=== PATIENT | female | born 1980 | race Caucasian/White ===

== ENCOUNTER 2021-07-18 16:36 | Emergency (ER) | payer OTHER, SELFPAY ==
--- NOTE | 2021-07-18 16:41 | ED.URI ---
HPI - URI/Sore Throat General Chief Complaint: Upper Respiratory Infection Stated Complaint: Throat pain Time Seen by Provider: 07/18/21 16:41 Source: patient and RN notes reviewed History of Present Illness HPI Narrative: Patient is a 41-year-old female presents the urgent care with complaints of a sore throat since yesterday. Patient states that she has not taken anything [id number] for her symptoms. Denies of fever, chills, nausea, vomiting. Denies any ill contacts. No other acute complaints. No acute distress noted. Patient aware of the plan of care. Some parts of this dictation were generated by voice recognition software and may contain typographical and/or grammatical inaccuracies. Related Data Home Medications Medication Instructions Recorded Confirmed Singulair 10 mg BYMOUTH DAILY 07/18/21 07/18/21 Strattera 18 mg PO DAILY 07/18/21 07/18/21 albuterol sulfate 1 puff INHALATION PRN 07/18/21 07/18/21 cholecalciferol (vitamin D3) 50,000 unit PO WEEKLY 07/18/21 07/18/21 lisdexamfetamine [Vyvanse] 10 mg PO DAILY 07/18/21 07/18/21 Allergies Allergy/AdvReac Type Severity Reaction Status Date / Time ketorolac Allergy Intermediate Numbness Verified 07/18/21 16:59 Penicillins Allergy Intermediate Hives and Verified 07/18/21 16:59 vomiting Sulfa (Sulfonamide Allergy Unknown hives and Verified 07/18/21 16:59 Antibiotics) vomiting fluticasone [From Flonase] AdvReac Nose Bleed Verified 07/18/21 16:59 BC pills AdvReac Intermediate uterine Uncoded 07/18/21 16:59 bleeding Review of Systems Review of Systems: CONSTITUTIONAL: Denies fever, chills, or sweats. EYES: Denies visual changes, redness, or discharge. ENT: Denies rhinorrhea, congestion, otalgia. Reports of sore throat CARDIOVASCULAR: Denies chest pain, palpitations, or edema. RESPIRATORY: Denies cough or dyspnea. GASTROINTESTINAL: Denies abdominal pain, nausea, vomiting, or diarrhea. GENITOURINARY: Denies dysuria or hematuria. SKIN: Denies rash or itching. MUSCULOSKELETAL: Denies back pain, joint pain, or myalgia. NEUROLOGIC: Denies headache, numbness, or weakness. All other systems reviewed are negative, except as documented in HPI. PMFSH Comments At the time of my signature, I reviewed and agree with the nursing past medical, surgical, social, and family history. There is no relevant family history pertinent to the patient complaint. Exam Narrative: GENERAL: This is a well-nourished, well-developed patient, in no apparent distress. HEAD: normocephalic, atraumatic. EYES: PERRL. Sclera clear/white. Vision is grossly intact. EARS: External ears normal, auditory canals clear and without drainage, TMs normal without perforation. Hearing grossly intact. NOSE: External nose normal with no obvious nasal discharge, nares without redness, no rhinorrhea. THROAT: Mucous membranes moist, posterior pharynx clear. Exudate noted to the left. Mild postnasal drainage. NECK: Neck supple, non-tender without lymphadenopathy CARDIOVASCULAR: Regular rate and rhythm without murmurs, gallops, or rubs. RESPIRATORY: Clear to auscultation. Breath sounds equal bilaterally. No wheezes, rales, or rhonchi. SKIN: warm, intact with no suspicious lesions or rash, good texture and turgor. NEURO: awake, alert, and oriented to person, place and time. There were no obvious focal neurologic abnormalities. EXTREMITIES: No clubbing, cyanosis, or edema. Course Course Level of Care: Express Care Visit Vital Signs Vital signs: Vital Signs Temperature 98.5 F 07/18/21 16:50 Pulse Rate 64 07/18/21 16:50 Respiratory Rate 16 07/18/21 16:50 Blood Pressure 103/68 07/18/21 16:50 Pulse Oximetry 100 07/18/21 16:50 Temperature 98.5 F 07/18/21 16:50 Pulse Rate 64 07/18/21 16:50 Respiratory Rate 16 07/18/21 16:50 Blood Pressure 103/68 07/18/21 16:50 Pulse Oximetry 100 07/18/21 16:50 Reviewed MDM - URI/Sore Throat MDM Narrative Medical decision jose rafael
[2021-07-18 16:50] VITALS: BP 103/68; PULSE 64; RESP 16; TEMP 36.9; O2SAT 100
== END 2021-07-18 17:15 | disposition home or self-care (01) ==
PROVIDERS: Emergency Provider Nurse Practitioner Family; PCP Internal Medicine
DX: J02.9 Acute pharyngitis, unspecified (principal); J45.909 Unspecified asthma, uncomplicated; F90.9 Attention-deficit hyperactivity disorder, unspecified type
CPT/HCPCS: 87081; 87880; 99203; G0463

== ENCOUNTER 2023-12-09 07:52 | Emergency (ER) | payer OTHER, SELFPAY ==
[2023-12-09 07:55] VITALS: BP 110/68; PULSE 71; RESP 20; TEMP 36.4; O2SAT 100
[2023-12-09] MEDS: diphenhydrAMINE HCl CAP 25 MG CAPSULE PO (08:21)
--- NOTE | 2023-12-09 08:30 | ED.SKABFB ---
HPI - Skin/Abscess/Foreign Bdy General Chief complaint: Skin/Abscess/Foreign Body Stated complaint: RASH Time Seen by Provider: 12/09/23 08:04 History of Present Illness HPI narrative: Patient is a 43-year-old female who presents ER with rash. It has developed over last day. Red itchy welts of the arms and 1 her waist. She has some around her ankle as well. Denies being outside. Does not think she is exposed to bedbugs. She is not sleeping in a new bed. No new sheets. No one else in the house has similar lesions. She has been using hydrocortisone. Related Data Home Medications Medication Instructions Recorded Confirmed Singulair 10 mg BYMOUTH DAILY 07/18/21 07/18/21 Strattera 18 mg PO DAILY 07/18/21 07/18/21 albuterol sulfate 90 mcg/actuation 1 puff inhalation PRN 07/18/21 07/18/21 aerosol inhaler cholecalciferol (vitamin D3) 1,250 50,000 unit PO WEEKLY 07/18/21 07/18/21 mcg (50,000 unit) capsule lisdexamfetamine 10 mg capsule 10 mg PO DAILY 07/18/21 07/18/21 (Vyvanse) Allergies Allergy/AdvReac Type Severity Reaction Status Date / Time ketorolac Allergy Intermediate Numbness Verified 12/09/23 08:03 Penicillins Allergy Intermediate Hives and Verified 12/09/23 08:03 vomiting Sulfa (Sulfonamide Allergy Unknown hives and Verified 12/09/23 08:03 Antibiotics) vomiting fluticasone [From Flonase] AdvReac Nose Bleed Verified 12/09/23 08:03 BC pills AdvReac Intermediate uterine Uncoded 12/09/23 08:03 bleeding Review of Systems Constitutional: Constitutional: Reports no additional constitutional complaints Integumentary/Breasts: Skin/Breast: Reports pruritus, Reports erythema and Denies rash PMFSH Past Medical History Medical History (Updated 12/09/23 @ 08:37 by Rodger Tomlin MD) Healthy female adult Exam Narrative: GENERAL: Well-appearing, well-nourished, and in no acute distress. HEAD: Normocephalic, atraumatic. ENT: Mucous membranes moist. EXTREMITIES: Normal range of motion. No edema. SKIN: Warm, dry, no rash. areas consistent with bug bites moving up the arms bilaterally, also around the waist and ankles. No excoriations. No cellulitis. NEURO: Alert and oriented x3. PSYCH: Normal mood and affect. Course Course Emergency Course: Discussed the treatment is couple hydrocortisone like she is using in taking antihistamines. Unsure if this is bedbugs but would recommend washing her sheets and clothes in hot water. Vital Signs Vital signs: Vital Signs Temperature 97.5 F L 12/09/23 07:55 Pulse Rate 71 12/09/23 07:55 Respiratory Rate 20 12/09/23 07:55 Blood Pressure 110/68 12/09/23 07:55 Pulse Oximetry 100 12/09/23 07:55 Oxygen Delivery Room Air 12/09/23 07:55 Temperature 97.5 F L 12/09/23 07:55 Pulse Rate 71 12/09/23 07:55 Respiratory Rate 20 12/09/23 07:55 Blood Pressure 110/68 12/09/23 07:55 Pulse Oximetry 100 12/09/23 07:55 Oxygen Delivery Room Air 12/09/23 07:55 Discharge Plan Discharge Clinical Impression: Bug bite Patient Disposition: Home, Self-Care Condition: Stable Instructions: Insect Bite or Sting (ED) Additional Instructions: Continue did use her topical hydrocortisone. You may take Benadryl or Zyrtec to help with itching. It is recommended that you wash your sheets and bedding in hot water and dry on high heat in case there are bedbugs. Prescriptions: No Action albuterol sulfate 90 mcg/actuation HFA aerosol inhaler 1 puff INHALATION PRN cholecalciferol (vitamin D3) 1,250 mcg (50,000 unit) capsule 50,000 unit PO WEEKLY Vyvanse 10 mg capsule 10 mg PO DAILY Singulair 10 mg BYMOUTH DAILY Strattera 18 mg PO DAILY Follow-up/Referrals: UNKNOWN,DOCTOR [Primary Care Provider] - 1 Week
[2023-12-09 08:45] VITALS: BP 115/72; PULSE 70; RESP 14; TEMP 36.5; O2SAT 100
== END 2023-12-09 08:48 | disposition home or self-care (01) ==
PROVIDERS: Emergency Provider Emergency Medicine
DX: S40.862A Insect bite (nonvenomous) of left upper arm, initial encounter (principal); S40.861A Insect bite (nonvenomous) of right upper arm, initial encounter; S30.861A Insect bite (nonvenomous) of abdominal wall, initial encounter; S91.052A Open bite, left ankle, initial encounter; S91.051A Open bite, right ankle, initial encounter; Z79.899 Other long term (current) drug therapy; W57.XXXA Bitten or stung by nonvenomous insect and other nonvenomous arthropods, initial encounter
CPT/HCPCS: 99282; A9270

== ENCOUNTER 2024-03-12 11:23 | Outpatient (CLI) | payer OTHER, SELFPAY ==
[2024-03-12 12:42] LABS: Thyroid Stimulating Hormone 0.969 uIU/mL (0.465-4.680)
[2024-03-15 02:28] LABS: FSH 4.8 mIU/mL
== END 2024-03-12 11:24 | disposition home or self-care (01) ==
LOC: ANHLAB 11:29
PROVIDERS: Visit Provider Obstetrics & Gynecology
DX: N95.1 Menopausal and female climacteric states (principal)
CPT/HCPCS: 36415; 82670; 83001; 84443

== ENCOUNTER 2024-08-04 08:23 | Outpatient (CLI) | payer OTHER, SELFPAY ==
--- OUTSIDE RECORDS SUMMARY | 2024-08-04 08:53 | XMS_ITS | Clinical Summary ---
Author Organization [facility] Address [address] [place] [address] Care Team Providers Care Labor Gang Supervisor Name Role Phone Rodger Castillo MD Primary Care Provider [phone] Allergies Active Allergy Reactions Criticality Noted Date Comments Ketorolac Other (See Comments) Low 02/16/2020 Lose feeling from waist down Other reaction(s): Other (See comments) Numbness Nasin Nasal Fulda Other (See Comments) 02/16/20 20 Nose bleed Penicillins Rash,Nausea and Vomiting Medium 02/16/2020 Other reaction(s): Nausea only Sulfa (Sulfonamide Antibiotics) Rash,Nausea and Vomiting Low 02/16/2020 Sulfur Rash Medium 03/26/2020 Medications cholecalciferol 1,250 mcg (50,000 unit) CapsuleIndicatio ns:Vitamin D deficiency Take 1 Capsule (50,000 Units) by mouth every 7 days. 12 Capsule 3 3 Active cyanocobalamin (VITAMIN B-12) 100 mcg tabletIndication s:Vitamin B12 deficiency (non anemic) Take 1 Tablet (100 mcg) by mouth daily. 90 Tablet 3 3 Active montelukast (SINGULAIR) 10 mg tabletIndication s:Other asthma Take 1 Tablet (10 mg) by mouth daily. 90 Tablet 3 3 Active dicyclomine (BENTYL) 10 mg capsuleIndicatio ns:Chronic diarrhea Take 1 Capsule (10 mg) by mouth 4 times daily as needed for Pain (diarrhea). 90 Capsule 2 3 Active fluticasone propion-salmeter oL (ADVAIR HFA) 115-21 mcg/actuation HFA Aerosol Inhaler Take 2 Puffs by inhalation every 12 hours. 12 Gram 3 4 Active citalopram (CeleXA) 20 mg tablet Take 1 Tablet (20 mg) by mouth daily at bedtime. 90 Tablet 3 4 Active azelastine (ASTELIN) 137 mcg/actuation nasal spray Administer 2 Sprays in each nostril 2 times daily. 30 mL 3 4 Active albuterol sulfate HFA 90 mcg/actuation aerosol inhaler Take 2 Puffs by inhalation every 4 hours as needed for Shortness of Breath. 8.5 Gram 6 4 Active omeprazole (PriLOSEC) 20 mg Capsule, Delayed Release(E.C.)Ind ications:Dysphag ia, unspecified type,Gastroesoph ageal reflux disease, unspecified whether esophagitis present Take 1 capsule by mouth once daily 60 Capsule 4 Active Active Problems Patient Care Coordination No te Formatting of this note migh t be different from the original. Prev 11/22/22 Problem Noted Date Diagnosed Date Adjustment disorder with anxiety 11/22/2022 S/P vaginal hysterectomy 01/06/2022 Other asthma 07/14/2021 Gastroesophageal reflux disease without esophagi tis 02/16/2020 Irritable bowel syndrome with diarrhea 0 Other insomnia 02/16/2020 Myalgia 02/16/2020 Encounters Date Type Department Care Team Description 06/18/2024 External Device Data ST[facility] ABSTRACTION Provider, Abstract from Last 3 Months Immunizations Immunization Administration Dates Next Due (ADACEL/BOOSTRIX)(10 YR UP) TDAP VACCINE, 0.5ML, IM 03/13/2021 (M-M-R II/PRIORIX)(12 MO UP) MEASLES, MUMPS AND RUBELLA VIRUS VACCINE, 0.5 ML IM/SUBCUT 06/17/2019 (PFIZER)(12 YR UP) COVID-19 VACCINE - EMERGENCY USE AUTHORIZATION, MRNA, [id number](PF) 30 MCG/0.3 ML IM SUSP 02/28/2021,02/02/2021 (PREVNAR 20)(6 WKS UP) PNEUM OCOCCAL CONJUGATE VACCINE 20-VALENT (PCV20), POLYSACCHARIDE [id number] CONJUGATE, ADJUVANT 0.5 ML (PF) IM 05/28/2023 INFLUENZA VACCINE QUADRIVALENT 6 MOS UP PF IM Family History * Patient is adopted Relation Name Status Comments Daughter 1 Alive Daughter 2 Alive Father Mother Other Sister 1 Alive Sister 2 Alive Sister 3 Alive Social History Tobacco Use Types Packs/Day Years Used Date Smoking Tobacco: Former Cigarettes 1 4 0 02/15/2001 - 02/15/2005 Passive Smoke Exposure: Past Smokeless Tobacco: Never Tobacco Cessation:Counseling Given: No Alcohol Use Standard Drinks/Week Comments Yes 0 (1 standard drink = 0.6 oz pur e alcohol) occ Feeling Safe Answer Date Recorded Are you in a relationship wi th someone who hurts you emotionally and/or physically? No 06/11/2023 Comments No Sex and Gender Information Value Date Recorded Sex Assigned at Female 03/05/2023 11:37 AM CDT Legal Sex Female 11:38 AM CDT Gender Identity Female 03/05/2023 11:37 AM CDT Sexual Orientation Straight 03/05/2023 11 :37 AM CDT Last Filed Vital Signs Vital Sign Reading Time Taken Comments Blood Pressure 105/68 06/11/2023 11:30 AM RETURN AGENT Pulse 69 06/11/2023 11:30 AM RETURN AGENT Temperature 36.2 C (97.1 F) 06/11/2023 11:19 AM RETURN AGENT Respiratory Rate 146 06/11/2023 11:30 AM RETURN AGENT Oxygen Saturation 100% 06/11/2023 11:30 AM RETURN AGENT Inhaled Oxygen Concentration - - Weight 53.1 kg (117 lb) 05/28/2023 10:09 AM RETURN AGENT Height 149.9 cm (4' 11 ) 05/28/2023 10:09 AM RETURN AGENT Body Mass Index 23.63 05/28/2023 10:09 AM RETURN AGENT Plan of Treatment Health Maintenance Due Date Last Done Comments HEPATITIS B VACCINES (1 of 3 - 19+ 3-dose series) 1998 BREAST CANCER SCREENING 12/12/2023 12/12/19 23, 04/06/2021, 03/26/2020, Additional history exists INFLUENZA VACCINE (#1) 2023 03/13/2021 COVID-19 Vaccine ( season) 2024 02/28/2021, 02/02/2021 FIT-DNA Q 3 years 2024 FIT/FOBT Q 1 year 2024 Preventative Visit- Commercial 05/27/2024 05/28/2023, 12/27/2022, 11/22/2022, Additional history exists CERVICAL CANCER SCREENING 12/27/20252022, 10/24/2021, 06/24/2020 COLORECTAL SCREENING 06/11/2026 06/11/2023, 06/11/19 24 Colorectal Cancer Screening 06/11/2026 Flex Sig/CT Colonography Q 5 years 03/12/2028 03/12/2023 DTAP/TDAP/TD VACCINES (2 - Td or Tdap) 03/13/2031 03/13/2021 PNEUMOCOCCAL VACCINE 0-49 YEARS Completed 05/28/2023 HPV VACCINES Aged Out No longer eligi ble based on patient's age to complete this topic Procedures Procedure Name Priority Date/Time Associated Diagnosis Comments COLONOSCOPY REPORT 06/11/2023 11 :23 AM RETURN AGENT FLEXIBLE SIGMOIDOSCOPY REPORT 03/12/2023 7:31 AM CDT CERV/VAG CYTO AGE BASED SCREEN PAP Routine 12/27/2022 9:51 AM CDT Well woman exam with routine gynecological exam MAMMO 3D TRINIDAD SCREEN BILAT W OR WO CAD Routine 12/11/2022 9:48 AM CDT Visit for screening mammogram from Last 3 Months or Most Recently Relevant to Health Maintenance Results * COLONOSCOPY REPORT (06/11/2023 11:23 AM RETURN AGENT) Narrative Procedure Note Ivania Viramontes MD - 06/11/2023 11:23 AM CST [facility] Endoscopy Patient Name: Namita Ash Procedure Date: 06/11/2023 Date of : 1980 Attending MD: Ivania Viramontes MD, Procedure: Colonoscopy Indications: Screening for colorectal malignant neoplasm Providers: Ivania Viramontes MD Referring MD: Rodger Castillo MD Medicines: Monitored Anesthesia Care Complications: No immediate complications. Procedure: Informed consent was obtained for the procedure, including moderate sedation after risks were discussed. Based on the pre-procedure assessment, including review of the patient's medical history, medications, allergies, and review of systems, the patient was deemed to be an appropriate candidate for sedation. A timeout was performed. Continuous ECG monitoring, pulse oximetry, blood pressure monitoring, and direct observation were performed. The Colonoscope was introduced through the anus and advanced to the cecum, identified by appendiceal orifice and ileocecal valve. The colonoscopy was performed without difficulty. The patient tolerated the procedure well. The quality of the bowel preparation was poor. Estimated Blood Loss: Estimated blood loss: none. Findings: A 9 mm polyp was found in the transverse colon. The polyp was semi-pedunculated. The polyp was removed with a cold snare. Resection and retrieval were complete. A moderate amount of stool was found in the entire colon, precluding visualization. Lavage and suctioning attempted, some areas still without full clearance. Non-bleeding internal hemorrhoids were found during retroflexion. The hemorrhoids were mild. Impression: - Preparation of the colon was poor. - One 9 mm polyp in the transverse colon, removed with a cold snare. Resected and retrieved. - Stool in the entire examined colon. - Non-bleeding internal hemorrhoids. Recommendation: - Await pathology results. - Repeat colonoscopy in 3 years for surveillance, especially with poor prep. Next time, you need to be sure you check your stools and make sure they are clear or like urine before coming in for repeat colonoscopy. You will need to do two-day prep again and for the week before your next colonoscopy, take miralax twice per day. If you do not feel comfortable looking at your stool to be sure it is clear enough, you need to find a friend or family member that is willing to help you with this next time so that we can get a better look of your entire colon. - NO NSAID MEDICATIONS FOR 7 DAYS. Ivania Viramontes MD 06/11/2023 11:23:26 AM This report has been signed electronically. Number of Addenda: [address]; [place] [address] Ivania Viramontes MD GI PROCEDURE ORDERABLES Final Result * FLEXIBLE SIGMOIDOSCOPY REPORT (03/12/2023 7:31 AM CDT) Narrative Procedure Note Ivania Viramontes MD - 03/12/2023 7:30 AM CDT [facility] Endoscopy Patient Name: Namita Ash Procedure Date: 03/12/2023 Date of : 1980 Attending MD: Ivania Viramontes MD, Procedure: Flexible Sigmoidoscopy, unable to complete colonoscopy due to prep Indications: Diarrhea, chronic anemia (history of GEMINI and menorrhagia with hysterectomy last year, anemia improving). Adopted. Unsure of family history. Providers: Ivania Viramontes MD Referring MD: Rodger Castillo MD Medicines: Monitored Anesthesia Care Complications: No immediate complications. Procedure: The was introduced through the anus and advanced to the left transverse colon. The flexible sigmoidoscopy was accomplished without difficulty. The patient tolerated the procedure well. The quality of the bowel preparation was poor. Estimated Blood Loss: Estimated blood loss: none. Findings: A 7 mm polyp was found in the sigmoid colon. The polyp was pedunculated. The polyp was removed with a cold snare. Resection and retrieval were complete. A large amount of solid stool was found in the transverse colon, precluding visualization. Non-bleeding internal hemorrhoids were found during retroflexion and during digital exam. The hemorrhoids were small. The exam was otherwise without abnormality. Impression: - Preparation of the colon was poor. - One 7 mm polyp in the sigmoid colon, removed with a cold snare. Resected and retrieved. - Stool in the transverse colon. - Non-bleeding internal hemorrhoids. - The examination was otherwise normal. Recommendation: - Await pathology results. - Repeat colonoscopy sometime in next 3-6 months at your convenience. If you did entire prep correctly this time, you will need to do a prolonged prep next time to adequately clean out. - Please have celiac antibody lab tests drawn at [facility] or a [facility] near your house when convenient for you. - I have requested a clinic follow up visit for you. Ivania Viramontes MD 03/12/2023 7:30:42 AM This report has been signed electronically. Number of Addenda: [address]; [place] [address] Ivania Viramontes MD GI PROCEDURE ORDERABLES Final Result * CERV/VAG CYTO AGE BASED SCREEN PAP (12/27/2022 9:51 AM CDT) COMMENT (PAP): [facility] [place] Comment: This order for age-based cervical cancer and STI screening follows ACOG guidelines(PB 168, 140, OTQ855). See individual assays for performing site location. CLINICAL INFORMATION [facility] [place] Comment:None given LAST MENSTRUAL PERIOD [facility] [place] Comment:NONE GIVEN PREV PAP: [facility] [place] Comment:NONE GIVEN PREV BX: [facility] [place] Comment:NONE GIVEN SOURCE [facility] [place] Comment:Vagina ADEQUACY: [facility] [place] Comment:SATISFACTORY FOR KIKO LUATION PAP INTERP [facility] [place] Comment: Cytology Results: Negative for intraepithelial lesion or malignancy. COMMENT (PAP TEST) [facility] [place] Comment: This Pap test has been evaluated with computer assisted technology. CARDIOLOGY MANAGER: [facility] [place] Comment: ABC, CT(ASCP) CT screening location: [place] [place] [address] EXPLANATORY NOTE [facility] [place] Comment: EXPLANATORY NOTE: The Pap is a screening test for cervical cancer. It is not a diagnostic test and is subject to false negative and false positive results. It is most reliable when a satisfactory sample, regularly obtained, is submitted with relevant clinical findings and history, and when the Pap result is evaluated along with historic and current clinical information. HPV E6/E7 Not Detected Not Detected [facility] [place] Comment: Methodology: Night Time Babysitter-Mediated Amplification This assay detects E6/E7 viral messenger RNA (mRNA) from 14 high-risk HPV types (16,18,31,33,35,39,45,51,52,56,58,59,66,68). Cervical sources are required for HPV testing. If a vaginal source from a patient who has had a total hysterectomy with removal of cervix was submitted, please contact the testing laboratory for alternative testing options. For additional information, please refer to http://education.[employer]/faq/RSE810w2 (This link if provided for information/ educational purposes only.) [facility] [address] [place] [address] Josefina MCKENZIE Genital SPECIMEN FROM VAGINA / Unknown 12/27/2022 9:51 AM CDT 12/27/2022 10:13 PM CDT us Zaria Mack NP PATHOLOGY/CYTOLOGY ORDERABLE S Final Result [facility] [phone] [facility] [address] [place] [address] * MAMMO SCRN BILAT 3D TRINIDAD W OR WO CAD (12/11/2022 9:48 AM CDT) Anatomical Region Laterality Modality Breast Bilateral Mammography 12/11/2022 9:48 AM CDT Impressions 12/11/2022 12:58 PM CDT IMPRESSION: No mammographic evidence of malignancy. OVERALL FINAL ASSESSMENT: BI-RADS CATEGORY 1: Negative RECOMMENDATIONS: Annual screening. The above findings should be correlated with physical examination. A relatively nonspecific study should not preclude additional evaluation if suspicious findings are present clinically. An [employer] certified facility. DICTATION LOCATION: [facility] Narrative 12/11/2022 12:58 PM CDT MAMMOGRAMS SCREENING DIGITAL BILATERAL WITH CAD AND 3D TOMOSYNTHESIS DATE: 12/11/2022 9:48 AM PRIOR: April 06, 2021. HISTORY: Screening. TECHNIQUE: Bilateral digital craniocaudad (CC) and mediolateral oblique (MLO) and XCCL views. 3D Tomosynthesis. CAD. DENSITY: The breasts are heterogeneously dense, which may obscure small masses. FINDINGS: No suspicious finding of either breast. Procedure Note Uriel Busby MD - 12/11/2022 MAMMOGRAMS SCREENING DIGITAL BILATERAL WITH CAD AND 3D TOMOSYNTHESIS DATE: 12/11/2022 9:48 AM PRIOR: April 06, 2021. HISTORY: Screening. TECHNIQUE: Bilateral digital craniocaudad (CC) and mediolateral oblique (MLO) and XCCL views. 3D Tomosynthesis. CAD. DENSITY: The breasts are heterogeneously dense, which may obscure small masses. FINDINGS: No suspicious finding of either breast. IMPRESSION: No mammographic evidence of malignancy. OVERALL FINAL ASSESSMENT: BI-RADS CATEGORY 1: Negative RECOMMENDATIONS: Annual screening. The above findings should be correlated with physical examination. A relatively nonspecific study should not preclude additional evaluation if suspicious findings are present clinically. An [employer] certified facility. DICTATION LOCATION: [facility] Rodger Castillo MD MAMMO ORDERABLES Final Result from Last 3 Months or Most Recently Relevant to Health Maintenance Insurance [employer] OPEN ACCESS H[employer] Advance Directives For more information, please contact: [phone] * Full Code (Latest Code Status on File) Date Activated Date Inactivated Comments 06/11/2023 10:17 AM 06/11/2023 2:51 PM * Full Code Date Activated Date Inactivated Comments 03/12/2023 6:44 AM 03/12/2023 10:18 AM * Full Code Date Activated Date Inactivated Comments 01/05/2022 9:04 AM 01/06/2022 3:58 PM Care Teams Labor Gang Supervisor Relationship Specialty Start Date End Date Rodger Castillo MD PCP - General Internal Medicine 02/12/20
[2024-08-04 08:57] LABS: Hematocrit 35.4 % (37.0-47.0); Hemoglobin 11.4 g/dL (12.0-15.0)
== END 2024-08-04 08:24 | disposition home or self-care (01) ==
LOC: ANHSURGERY 08:32
PROVIDERS: Anesthesiology; Visit Provider Obstetrics & Gynecology
DX: Z01.812 Encounter for preprocedural laboratory examination (principal); D64.9 Anemia, unspecified; R10.2 Pelvic and perineal pain
CPT/HCPCS: 36415; 85014; 85018; 86850; 86900; 86901

== ENCOUNTER 2024-08-07 00:09 | Day surgery (SDC) | payer OTHER, SELFPAY ==
[2024-07-30 14:34] VITALS: BMI 24.9
--- NOTE | 2024-07-30 15:04 | PC.NURSE ---
Report to the Outpatient Waiting Room, entrance under the green pavilion located off [facility], at time __1:15PM on date ___08/07/24____. Planned Procedure Time: __3:15PM .? Time changes happen often and if your time is changed the preop area will call you the afternoon before. - You and your visitor will be asked to self-screen and do not enter if you have any COVID symptoms. Please call surgeon if you need to reschedule. - A mask is optional within the hospital at this time. Patients may have clear liquids (water, carbonated beverages, clear teas, apple juice) until 3 hours prior to surgery (12:15PM) with a maximum of 20 ounces. - No food from midnight until time of surgery and no smoking, or chewing tobacco (or any form of nicotine). No chewing gum, candy or mints. Take only the following medications with a SIP of water on the morning of surgery: ___ADVAIR IN HALER. MAY USE ALBUTEROL INHALER NEEDED. DO NOT STOP ANY OF YOUR OTHER PRESCRIPTION MEDICATIONS PRIOR TO SURGERY EXCEPT THE FOLLOWING Hold all vitamins and supplements for 3 days per anesthesiologist. Date to take last dose 08/03/24. Please no make-up, nail kiswahili, hairspray, perfume, deodorant, or body powder the day of surgery.? No jewelry (including any body piercings) or valuables the day of surgery, leave them at home.? Please take a shower or bath the night before, or the morning of, surgery with an antibacterial soap.? Wear comfortable, loose fitting clothing.? - Jewelry must be removed prior to entering the operating room.? Rings and piercings that are not removed may be cut off. - The hospital will not accept responsibility for valuables.? - Please leave all valuables, including medications, at home the day of surgery. If you are going home after surgery, a licensed wagon driver must drive you home.? - NO public transportation without another adult if you receive anesthesia. - We recommend that an adult stay with you for 24 hours following discharge. - We also recommend that you do not drive, make important decision, drink alcoholic beverages, or take any drugs that were not prescribed by your health care provider for at least 24 hours after your discharge time. Follow any additional instructions given to you from your surgeon. Telephone instructions given to ___PATIENT and asked if any additional questions and then verbalized understanding. Patient advised to call surgeon office or pre surgery nurse liaison [phone] if any additional questions.
--- NOTE | 2024-08-04 12:33 | PM.IMHP ---
H&P: HPI History of Present Illness Date/Time: 08/04/24 12:33 Chief Complaint: Pelvic pain Narrative: 43-year-old female status post hysterectomy admitted for laparoscopy secondary to pelvic pain. She describes her pain as episodes of severe pain. 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 Ultrasound was somewhat unhelpful 1 ovary could be seen on the reported not both. In light of her continued severe pelvic pain she will undergo laparoscopy. Risks and benefits including but not exclusive of , aspiration pneumonia, bleeding, transfusion, perforation injury to bowel, bladder, ureters, or other internal organs with need for open laparotomy reviewed. She received the ACOG handout entitled laparoscopy. She had all questions answered. She asked to proceed. Review of Systems Constitutional: Constitutional: Reports no additional constitutional complaints Integumentary/Breasts: Skin/Breast: Reports pruritus, Reports erythema and Denies rash PMFSH Past Medical History Medical History Healthy female adult Social History Social History Smoking packs per day: 1 Smoking cigarettes per day: 20.0 Years smoked: 10 Smoking pack-years: 10.00 Smoking status: Former smoker Tobacco type: cigarettes Smoking end date: 11/25/03 Alcohol intake: former Alcohol use details: HEAVY DRINKER/ALCOHOLIC Substance use: former Substance use type: crack/cocaine Last use: 2002 Living arrangements: with family Additional living arrangements comments: ROOMMATE Spiritual care concerns: No Meds Home Medications and Allergies Home Medications ?Medication ?Instructions ?Recorded ?Confirmed ?Type albuterol sulfate 90 mcg/actuation 1 puff inhalation PRN PRN 07/18/21 07/30/24 History aerosol inhaler shortness of breath or wheezing cholecalciferol (vitamin D3) 1,250 50,000 unit PO WEEKLY 07/18/21 07/30/24 History mcg (50,000 unit) capsule calcium 500 mg (as 2 tablet PO DAILY 07/30/24 07/30/24 History carbonate)-vitamin D3 3.125 mcg (125 unit) tablet cholecalciferol (vitamin D3) 50 100 mcg PO DAILY 07/30/24 07/30/24 History mcg (2,000 unit) chewable tablet cyanocobalamin (vitamin B-12) 100 100 mcg PO DAILY 07/30/24 07/30/24 History mcg tablet dicyclomine 10 mg capsule 10 mg PO QID PRN abdominal pain 07/30/24 07/30/24 History ferrous sulfate 325 mg (65 mg 325 mg PO DAILY 07/30/24 07/30/24 History iron) tablet (Feosol) fluticasone propionate 115 2 puff inhalation Q12H 07/30/24 07/30/24 History mcg-salmeterol 21 mcg/actuation HFA inhaler (Advair HFA) inulin 2 gram chewable tablet 10 g PO DAILY 07/30/24 07/30/24 History (F[employer]ights) montelukast 10 mg tablet 10 mg PO DAILY 07/30/24 07/30/24 History omeprazole 20 mg capsule,delayed 20 mg PO DAILY 07/30/24 07/30/24 History release Allergies Allergy/AdvReac Type Severity Reaction Status Date / Time ketorolac Allergy Intermediate Numbness Verified 07/30/24 14:26 FROM WAIST DOWN Penicillins AdvReac Intermediate Hives and Verified 07/30/24 14:26 vomiting Sulfa (Sulfonamide AdvReac Unknown hives and Verified 07/30/24 14:26 Antibiotics) vomiting fluticasone (From Flonase) AdvReac Nose Bleed Verified 07/30/24 14:26 BC pills AdvReac Intermediate uterine Uncoded 07/30/24 14:26 bleeding Exam Const: General: cooperative, healthy appearing and comfortable Nutritional Appearance: average body habitus Orientation/consciousness: oriented to person, oriented to place and oriented to time HENMT: Head: normal to inspection Resp: Effort & Inspection: normal respiratory effort Cardio: Rate: regular rate Rhythm: regular rhythm Heart sounds: S1 normal heart sound present and S2 normal heart sound present GI: Inspection: normal to inspection : External Female Exam: normal external appearance Speculum Exam - Vagina: normal appearance of the vagina Speculum Exam - Cervix: Cervix absent Bimanual exam- vagina & uterus: uterus absent Bimanual Exam- Adnexa, other: tender bilaterally Assessment and Plan Assessment and plan (1) Pelvic pain: Code(s): R10.2 - Pelvic and perineal pain Status: Acute Plan Proceed with diagnostic laparoscopy and suspected lysis of adhesions
[2024-08-07] VITALS (9 sets, daily range): BP systolic 113–146; BP diastolic 70–88; PULSE 64–76; RESP 14–18; TEMP 36.4–36.9; O2SAT 100; BMI 24.2
--- OUTSIDE RECORDS SUMMARY | 2024-08-07 00:16 | XMS_ITS | Clinical Summary ---
Author Organization [facility] Address [address] [place] [address] Care Team Providers Care Awnings Mechanic Name Role Phone Rodger Castillo MD Primary Care Provider [phone] Allergies Active Allergy Reactions Criticality Noted Date Comments Ketorolac Other (See Comments) Low 02/16/2020 Lose feeling from waist down Other reaction(s): Other (See comments) Numbness Nasin Nasal [place] Other (See Comments) 02/16/20 20 Nose bleed [...] COVID-19 VACCINE - EMERGENCY USE AUTHORIZATION, MRNA, [id number](PF) 30 MCG/0.3 ML IM SUSP 02/28/2021,02/02/2021 (PREVNAR 20)(6 WKS UP) PNEUM OCOCCAL CONJUGATE VACCINE 20-VALENT (PCV20), POLYSACCHARIDE [id number] CONJUGATE, ADJUVANT 0.5 ML (PF) IM 05/28/2023 [...] Comments Blood Pressure 105/68 06/11/2023 11:30 AM INSURANCE LAW SPECIALIST Pulse 69 06/11/2023 11:30 AM INSURANCE LAW SPECIALIST Temperature 36.2 C (97.1 F) 06/11/2023 11:19 AM INSURANCE LAW SPECIALIST Respiratory Rate 146 06/11/2023 11:30 AM INSURANCE LAW SPECIALIST Oxygen Saturation 100% 06/11/2023 11:30 AM INSURANCE LAW SPECIALIST Inhaled Oxygen Concentration - - Weight 53.1 kg (117 lb) 05/28/2023 10:09 AM INSURANCE LAW SPECIALIST Height 149.9 cm (4' 11 ) 05/28/2023 10:09 AM INSURANCE LAW SPECIALIST Body Mass Index 23.63 05/28/2023 10:09 AM INSURANCE LAW SPECIALIST Plan of Treatment Health Maintenance Due Date [...] Comments COLONOSCOPY REPORT 06/11/2023 11 :23 AM INSURANCE LAW SPECIALIST FLEXIBLE SIGMOIDOSCOPY REPORT 03/12/2023 7:31 AM CDT CERV/VAG CYTO AGE BASED SCREEN PAP Routine 12/27/2022 9:51 AM CDT Well woman exam with routine gynecological exam MAMMO 3D TRINIDAD SCREEN BILAT W OR WO CAD Routine 12/11/2022 9:48 AM CDT Visit for screening mammogram from Last 3 Months or Most Recently Relevant to Health Maintenance Results * COLONOSCOPY REPORT (06/11/2023 11:23 AM INSURANCE LAW SPECIALIST) Narrative Procedure Note Ivania Viramontes MD - 06/11/2023 11:23 AM CST [facility] Endoscopy Patient Name: Namita Ash Procedure Date: [...] of Addenda: [address]; [place] [address] Ivania Viramontes MD GI PROCEDURE ORDERABLES Final Result * FLEXIBLE SIGMOIDOSCOPY REPORT (03/12/2023 7:31 AM CDT) Narrative Procedure Note Ivania Viramontes MD - 03/12/2023 7:30 AM CDT [facility] Endoscopy Patient Name: Namita sAh Procedure Date: 03/12/2023 Date of : 1980 [...] have celiac antibody lab tests drawn at [facility] or a [facility] lab near your house when convenient for you. - I have requested a clinic follow up visit for you. Ivania Viramontes MD 03/12/2023 7:30:42 AM This report has been signed electronically. Number of Addenda: [address]; [place] [address] Ivania Viramontes MD GI PROCEDURE ORDERABLES Final Result * CERV/VAG CYTO AGE BASED SCREEN PAP (12/27/2022 9:51 AM CDT) COMMENT (PAP): [facility] [place] Comment: This order for age-based cervical cancer and STI screening follows ACOG guidelines(PB 168, 140, UYY107). See individual assays for performing site location. CLINICAL INFORMATION [facility] [place] Comment:None given LAST MENSTRUAL PERIOD [facility] [place] Comment:NONE GIVEN PREV PAP: [facility] [place] Comment:NONE GIVEN PREV BX: [facility] [place] Comment:NONE GIVEN SOURCE [facility] [place] Comment:Vagina ADEQUACY: [facility] [place] Comment:SATISFACTORY FOR KIKO LUATION PAP INTERP [facility] [place] Comment: Cytology Results: Negative for intraepithelial lesion or malignancy. COMMENT (PAP TEST) [facility] [place] Comment: This Pap test has been evaluated with computer assisted technology. TILE DESIGNER: [facility] [place] Comment: ABC, CT(ASCP) CT screening location: [address] [place] [address] EXPLANATORY NOTE [facility] [place] Comment: EXPLANATORY NOTE: The Pap is a [...] information. HPV E6/E7 Not Detected Not Detected [facility] [place] Comment: Methodology: Sewer Pipe Sorter-Mediated Amplification This assay detects E6/E7 viral messenger RNA (mRNA) from 14 high-risk HPV types (16,18,31,33,35,39,45,51,52,56,58,59,66,68). Cervical sources are required for HPV testing. If a vaginal source from a patient who has had a total hysterectomy with removal of cervix was submitted, please contact the testing laboratory for alternative testing options. For additional information, please refer to http://education.Luristic/faq/GDM826x8 (This link if provided for information/ educational purposes only.) Test [facility]formed [facility]: [facility] [address] [place] [address] Josefina MCKENZIE Genital SPECIMEN FROM VAGINA / Unknown 12/27/2022 9:51 AM CDT 12/27/2022 10:13 PM CDT us Zaria Mack NP PATHOLOGY/CYTOLOGY ORDERABLE S Final Result [facility] [phone] [facility] [address] [place] [address] * MAMMO SCRN BILAT 3D TRINIDAD W [...] if suspicious findings are present clinically. An [employer] certified facility. DICTATION LOCATION: [facility] Narrative 12/11/2022 12:58 PM CDT MAMMOGRAMS SCREENING [...] if suspicious findings are present clinically. An [employer] certified facility. DICTATION LOCATION: [facility] Rodger Castillo MD MAMMO ORDERABLES Final Result from Last 3 Months or Most Recently Relevant to Health Maintenance Insurance [employer] OPEN ACCESS HMO RX [employer] [facility] Advance Directives For more information, please contact: [phone] * Full Code (Latest Code Status on File) Date Activated Date Inactivated Comments 06/11/2023 10:17 AM 06/11/2023 2:51 PM * Full Code Date Activated Date Inactivated Comments 03/12/2023 6:44 AM 03/12/2023 10:18 AM * Full Code Date Activated Date Inactivated Comments 01/05/2022 9:04 AM 01/06/2022 3:58 PM Care Teams Awnings Mechanic Relationship Specialty Start Date End Date Rodger Castillo MD PCP - General Internal Medicine 02/12/20
--- NOTE | 2024-08-07 07:25 | WPDHPUPDATE1 ---
History and Physical Update Update Date/Time: 08/07/24 07:25 History and Physical has been reviewed, including an updated exam of the patient. There are NO changes in the patient's condition. Risks, benefits, and alternatives have been discussed and questions answered. Patient agrees to proceed with procedure.
[2024-08-07] MEDS: LACTATED RINGERS 1,000 ML 30 ML IV CONT (12:40)
[2024-08-07] MEDS: ACETAMINOPHEN 500 MG TABLET 1000 MG PO (12:45)
--- NOTE | 2024-08-07 13:54 | P.PNAN_ITS ---
Anes - Initial Pre Proc Eval Procedure: Operation Date: 08/07/24 14:00 Proposed Procedures p Diagnostic Laparoscopy - Gunner Hagan MD Date/Time: 08/07/24 13:54 Surgeon: Gunner Hagan MD Pre Op Diagnosis: pelvic pain Patient Data Age: 44 Gender: F Height: 1.5 m Weight: 54.35 kg Last Vital Signs Temp 36.9 C 08/07/24 13:42 Pulse 68 08/07/24 13:42 Resp 16 08/07/24 13:42 BP 113/70 08/07/24 13:42 Pulse Ox 100 08/07/24 13:42 O2 Del Method Room Air 08/07/24 13:42 Allergies Allergy/AdvReac Type Severity Reaction Status Date / Time ketorolac Allergy Intermediate Numbness Verified 08/07/24 13:38 FROM WAIST DOWN Penicillins AdvReac Intermediate Hives and Verified 08/07/24 13:38 vomiting Sulfa (Sulfonamide AdvReac Unknown hives and Verified 08/07/24 13:38 Antibiotics) vomiting fluticasone (From Flonase) AdvReac Nose Bleed Verified 08/07/24 13:38 BC pills AdvReac Intermediate uterine Uncoded 08/07/24 13:38 bleeding Home Medications ?Medication ?Instructions ?Recorded ?Confirmed ?Type albuterol sulfate 90 mcg/actuation 1 puff inhalation PRN PRN 07/18/21 07/30/24 History aerosol inhaler shortness of breath or wheezing cholecalciferol (vitamin D3) 1,250 50,000 unit PO WEEKLY 07/18/21 08/07/24 History mcg (50,000 unit) capsule calcium 500 mg (as 2 tablet PO DAILY 07/30/24 08/07/24 History carbonate)-vitamin D3 3.125 mcg (125 unit) tablet cholecalciferol (vitamin D3) 50 100 mcg PO DAILY 07/30/24 08/07/24 History mcg (2,000 unit) chewable tablet cyanocobalamin (vitamin B-12) 100 100 mcg PO DAILY 07/30/24 07/30/24 History mcg tablet dicyclomine 10 mg capsule 10 mg PO QID PRN abdominal pain 07/30/24 07/30/24 History ferrous sulfate 325 mg (65 mg 325 mg PO DAILY 07/30/24 08/07/24 History iron) tablet (Feosol) fluticasone propionate 115 2 puff inhalation Q12H 07/30/24 07/30/24 History mcg-salmeterol 21 mcg/actuation HFA inhaler (Advair HFA) inulin 2 gram chewable tablet 10 g PO DAILY 07/30/24 07/30/24 History (Fiber Delights) montelukast 10 mg tablet 10 mg PO DAILY 07/30/24 08/07/24 History omeprazole 20 mg capsule,delayed 20 mg PO DAILY 07/30/24 08/07/24 History release hydrocodone 5 mg-acetaminophen 325 1 tablet PO Q4H PRN pain #20 tabs 08/07/24 Rx mg tablet Patient hx anesthesia problems: none Family hx anesthesia problems: none Results Review: All pre-operative results and documents have been reviewed as part of the pre- operative evaluation. [facility] Past Medical History Medical History (Updated 08/07/24 @ 13:56 by Alison Aguirre CRNA) Former smoker Endometriosis GERD (gastroesophageal reflux disease) (~08/07/24) Anemia Anxiety Asthma ADHD Healthy female adult Social History Social History Smoking packs per day: 1 Smoking cigarettes per day: 20.0 Years smoked: 10 Smoking pack-years: 10.00 Smoking status: Former smoker Tobacco type: cigarettes Smoking end date: 11/25/03 Alcohol intake: former Alcohol use details: HEAVY DRINKER/ALCOHOLIC Substance use: former Substance use type: crack/cocaine Last use: 2002 Living arrangements: with family Additional living arrangements comments: ROOMMATE Spiritual care concerns: No Anes - Eval Final PreProcedure Day of Procedure 08/07/24 13:54 Patient weight: normal Heart: regular rate and rhythm Lungs: clear to auscultation and normal air movement Airway: Mallampati scale class 1 and special considerations (edentulous) Neurological: alert and oriented Last oral intake: >/= 8 hours ASA classification: III Emergent: no Anesthetic plan: proceed Anesthesia type and monitoring: general ETT and standard monitoring Results Review: All pre-operative results and documents have been reviewed as part of the pre- operative evaluation. Informed Consent: The patient's anesthetic plan and its attendant risks and benefits were discussed with the patient/family/POA. Questions were solicited and answers provided to the satisfaction of the patient/family/POA.
--- NOTE | 2024-08-07 14:51 | P.OP_ITS ---
Procedure Note - Detailed Date of Procedure 08/07/24 Pre-op Diagnosis pelvic pain Post-op Diagnosis Other (Pelvic pain/compact left ovarian cyst) Procedure Performed Laparoscopic left salpingo-oophorectomy and lysis of adhesions Surgeon Gunner Hagan MD Anesthesia General Indications 44-year-old status post hysterectomy with pelvic pain dyspareunia Findings Uterus surgically absent. Multiple adhesions were seen over the vaginal cuff. Tubo-ovarian complex on the left. Normal-appearing right ovary Description of Procedure The patient was prepped draped in the normal sterile fashion placed in the dorsa l lithotomy position. Under excellent trach anesthesia weighted speculum placed posterior fornix vagina a sponge stick placed and the bladder emptied clear urine. A weighted speculum was removed the gloves were changed. Supraumbilical incision made the Veress needle passed in the abdomen. Abdomen filled with CO2 gas [id number]. The 5mm trocar advanced in the abdomen direct visualization assuring no injury. Patient placed in Trendelenburg and a suprapubic incision made. The 5mm trocar advanced under direct visualization assuring no injury. The left lower quadrant was incised and a 10mm trocar advanced under direct visualization assuring no injury. Multiple adhesions were seen in photo documentation was undertaken. The omentum and bowel was stuck to the vaginal cuff and this was sharply dissected carefully avoiding injury to the underlying bowel. A complex left tubo-ovarian complex was noted. The infundibulopelvic structure was then skeletonized clamped, burned, cut and the o vary and tube complex were placed in the Endo-Catch and removed through the left lower quadrant irrigation undertaken to clear and no other abnormalities were seen. Lower site removed. The gas removed from the abdomen. The upper site removed. The incisions closed with 4 Monocryl and glue. Patient went to recovery in satisfactory condition. All sponge, needle, instrument counts were correct. There were no immediate complications Estimated Blood Loss 5 Drains No Packing No Pathology Yes Complications No immediate complications Condition Stable Disposition PACU
[2024-08-07] MEDS: oxyCODONE HCL (*CRX) 5 MG TAB IR PO (16:35)
== END 2024-08-07 17:17 | disposition home or self-care (01) ==
PROVIDERS: Visit Provider Obstetrics & Gynecology
PROC: (CPT 49320; principal; 2024-08-07 14:00)
DX: D27.1 Benign neoplasm of left ovary (principal); N83.12 Corpus luteum cyst of left ovary; N83.02 Follicular cyst of left ovary; N73.6 Female pelvic peritoneal adhesions (postinfective); D64.9 Anemia, unspecified; K21.9 Gastro-esophageal reflux disease without esophagitis; F41.9 Anxiety disorder, unspecified; J45.909 Unspecified asthma, uncomplicated; N80.9 Endometriosis, unspecified; F90.9 Attention-deficit hyperactivity disorder, unspecified type; Z98.890 Other specified postprocedural states; Z87.891 Personal history of nicotine dependence; Z79.51 Long term (current) use of inhaled steroids; Z79.891 Long term (current) use of opiate analgesic
CPT/HCPCS: 58661; 88305; A9270; J1100; J2405; J2704; J3010; J7030; J7120

== ENCOUNTER 2024-11-05 02:23 | Day surgery (SDC) | payer OTHER, SELFPAY ==
[2024-11-03 12:13] VITALS: BMI 24.6
--- OUTSIDE RECORDS SUMMARY | 2024-11-05 02:29 | XMS_ITS | Clinical Summary ---
Author Organization [facility] Address [address] [place] [address] Care Team Providers Care Meat Washer Name Role Phone Rodger Castillo MD Primary Care Provider [phone] Allergies Active Allergy Reactions Criticality Noted Date Comments Ketorolac Other (See Comments) Low 02/16/2020 Lose feeling from waist down Other reaction(s): Other (See comments) Numbness Nasin Nasal [place] Other (See Comments) 02/16/20 20 Nose bleed [...] diarrhea 0 Other insomnia 02/16/2020 Myalgia 02/16/2020 Immunizations Immunization Administration Dates Next Due (ADACEL/BOOSTRIX)(10 YR UP) TDAP VACCINE, 0.5ML, IM 03/13/2021 (M-M-R II/PRIORIX)(12 MO UP) MEASLES, MUMPS AND RUBELLA VIRUS VACCINE, 0.5 ML IM/SUBCUT 06/17/2019 (PFIZER)(12 YR UP) COVID-19 VACCINE - EMERGENCY USE AUTHORIZATION, MRNA, [id number](PF) 30 MCG/0.3 ML IM SUSP 02/28/2021,02/02/2021 (PREVNAR 20)(6 WKS UP) PNEUM OCOCCAL CONJUGATE VACCINE 20-VALENT (PCV20), POLYSACCHARIDE [id number] CONJUGATE, ADJUVANT 0.5 ML (PF) IM 05/28/2023 [...] Comments Blood Pressure 105/68 06/11/2023 11:30 AM WINDOW MACHINE OPERATOR Pulse 69 06/11/2023 11:30 AM WINDOW MACHINE OPERATOR Temperature 36.2 C (97.1 F) 06/11/2023 11:19 AM WINDOW MACHINE OPERATOR Respiratory Rate 146 06/11/2023 11:30 AM WINDOW MACHINE OPERATOR Oxygen Saturation 100% 06/11/2023 11:30 AM WINDOW MACHINE OPERATOR Inhaled Oxygen Concentration - - Weight 53.1 kg (117 lb) 05/28/2023 10:09 AM WINDOW MACHINE OPERATOR Height 149.9 cm (4' 11) 05/28/2023 10:09 AM WINDOW MACHINE OPERATOR Body Mass Index 23.63 05/28/2023 10:09 AM WINDOW MACHINE OPERATOR Plan of Treatment Health Maintenance Due Date Last Done Comments HEPATITIS B VACCINES (1 of 3 - 19+ 3-dose series) 1998 BREAST CANCER SCREENING 12/12/2023 12/12/19, 04/06/2021, 03/26/2020, Additional history exists INFLUENZA VACCINE (#1) 2023 03/13/2021 COVID-19 Vaccine ( season) 2024 02/28/2021, 02/02/2021 FIT-DNA Q 3 years 2024 FIT/FOBT Q 1 year 2024 Preventative Visit- Commercial 05/27/2024 05/28/2023, 12/27/2022, 11/22/2022, Additional history exists COLORECTAL SCREENING 06/11/2026 06/11/2023, 06/11/19 24 Colorectal Cancer Screening 06/11/2026 Flex Sig/CT Colonography Q 5 years 03/12/2028 03/12/2023 DTAP/TDAP/TD VACCINES (2 - Td or Tdap) 03/13/2031 03/13/2021 HPV VACCINES Aged Out No longer eligi ble based on patient's age to complete this topic Procedures Procedure Name Priority Date/Time Associated Diagnosis Comments COLONOSCOPY REPORT 06/11/2023 11 :23 AM WINDOW MACHINE OPERATOR FLEXIBLE SIGMOIDOSCOPY REPORT 03/12/2023 7:31 AM CDT MAMMO 3D TRINIDAD SCREEN BILAT W OR WO CAD Routine 12/11/2022 9:48 AM CDT Visit for screening mammogram from Last 3 Months or Most Recently Relevant to Health Maintenance Results * COLONOSCOPY REPORT (06/11/2023 11:23 AM WINDOW MACHINE OPERATOR) Narrative Procedure Note Ivania Viramontes MD - 06/11/2023 11:23 AM CST [facility] Endoscopy Patient Name: Namita Ash Procedure Date: [...] signed electronically. Number of Addenda: [address]; [place] [address] Ivania Viramontes MD GI PROCEDURE ORDERABLES Final Result * FLEXIBLE SIGMOIDOSCOPY REPORT (03/12/2023 7:31 AM CDT) Narrative Procedure Note Ivania Viramontes MD - 03/12/2023 7:30 AM CDT [facility] Endoscopy Patient Name: Namita Ash Procedure Date: [...] have celiac antibody lab tests drawn at [facility] or a [facility] lab near your house when convenient for you. - I have requested a clinic follow up visit for you. Ivania Viramontes MD 03/12/2023 7:30:42 AM This report has been signed electronically. Number of Addenda: [address]; [place] [address] Ivania Viramontes MD GI PROCEDURE ORDERABLES Final Result * MAMMO SCRN BILAT 3D TRINIDAD W [...] if suspicious findings are present clinically. An [employer] certified facility. DICTATION LOCATION: [facility] Narrative 12/11/2022 12:58 PM CDT MAMMOGRAMS [...] if suspicious findings are present clinically. An [employer] certified facility. DICTATION LOCATION: [facility] Rodger Castillo MD MAMMO ORDERABLES Final Result from Last 3 Months or Most Recently Relevant to Health Maintenance Insurance [employer] OPEN ACCESS HMO RX [employer] Advance Directives For more information, please contact: [phone] * Full Code (Latest Code Status on File) Date Activated Date Inactivated Comments 06/11/2023 10:17 AM 06/11/2023 2:51 PM * Full Code Date Activated Date Inactivated Comments 03/12/2023 6:44 AM 03/12/2023 10:18 AM * Full Code Date Activated Date Inactivated Comments 01/05/2022 9:04 AM 01/06/2022 3:58 PM Care Teams Meat Washer Relationship Specialty Start Date End Date Rodger Castillo MD PCP - General Internal Medicine 02/12/20
[2024-11-05 11:54] VITALS: BP 111/68; PULSE 59; RESP 20; TEMP 36.9; O2SAT 100
[2024-11-05] MEDS: LACTATED RINGERS 1,000 ML 150 ML IV CONT (12:07)
--- NOTE | 2024-11-05 12:13 | P.PNAN_ITS ---
Anes - Initial Pre Proc Eval Procedure: Operation Date: 11/05/24 12:30 Proposed Procedures p Colonoscopy - Andrés Castillo MD Date/Time: 11/05/24 12:13 Surgeon: Andrés Castillo MD Pre Op Diagnosis: Family Hx of malignant neoplasm of digestive organ Patient Data Age: 44 Gender: F Height: 1.5 m Weight: 53.3 kg Last Vital Signs Temp 98.4 F 11/05/24 11:54 Pulse 59 L 11/05/24 11:54 Resp 20 11/05/24 11:54 BP 111/68 11/05/24 11:54 Pulse Ox 100 11/05/24 11:54 O2 Del Method Room Air 11/05/24 11:54 Allergies Allergy/AdvReac Type Severity Reaction Status Date / Time ketorolac Allergy Intermediate Numbness Verified 11/05/24 11:44 FROM WAIST DOWN Penicillins AdvReac Intermediate Hives and Verified 11/05/24 11:44 vomiting Sulfa (Sulfonamide AdvReac Unknown hives and Verified 11/05/24 11:44 Antibiotics) vomiting fluticasone (From Flonase) AdvReac Nose Bleed Verified 11/05/24 11:44 BC pills AdvReac Intermediate uterine Uncoded 11/05/24 11:44 bleeding Home Medications ?Medication ?Instructions ?Recorded ?Confirmed ?Type albuterol sulfate 90 mcg/actuation 1 puff inhalation PRN PRN 07/18/21 11/03/24 History aerosol inhaler shortness of breath or wheezing cholecalciferol (vitamin D3) 1,250 50,000 unit PO WEEKLY 07/18/21 11/05/24 History mcg (50,000 unit) capsule calcium 500 mg (as 2 tablet PO DAILY 07/30/24 11/05/24 History carbonate)-vitamin D3 3.125 mcg (125 unit) tablet cholecalciferol (vitamin D3) 50 100 mcg PO DAILY 07/30/24 11/05/24 History mcg (2,000 unit) chewable tablet cyanocobalamin (vitamin B-12) 100 100 mcg PO DAILY 07/30/24 11/05/24 History mcg tablet dicyclomine 10 mg capsule 10 mg PO QID PRN abdominal pain 07/30/24 11/03/24 History ferrous sulfate 325 mg (65 mg 325 mg PO DAILY 07/30/24 11/05/24 History iron) tablet (Feosol) fluticasone propionate 115 2 puff inhalation Q12H 07/30/24 11/05/24 History mcg-salmeterol 21 mcg/actuation HFA inhaler (Advair HFA) inulin 2 gram chewable tablet 10 g PO DAILY 07/30/24 11/05/24 History (Fiber Delights) montelukast 10 mg tablet 10 mg PO DAILY 07/30/24 11/05/24 History omeprazole 20 mg capsule,delayed 20 mg PO DAILY 07/30/24 11/05/24 History release sodium sul 1.479 gram-potas ch See Rx Instructions PO PER PKG DIR 08/13/24 11/05/24 Rx 0.188 gram-magnes sul 0.225 gram #24 tabs tablet (Sutab) Patient hx anesthesia problems: none Family hx anesthesia problems: none Results Review: All pre-operative results and documents have been reviewed as part of the pre- operative evaluation. [facility] Past Medical History Medical History (Updated 08/07/24 @ 13:56 by Alison Aguirre CRNA) Former smoker Endometriosis GERD (gastroesophageal reflux disease) (~08/07/24) Anemia Anxiety Asthma ADHD Healthy female adult Social History Social History Smoking packs per day: 1 Smoking cigarettes per day: 20.0 Years smoked: 10 Smoking pack-years: 10.00 Smoking status: Former smoker Tobacco type: cigarettes Smoking end date: 11/25/03 Alcohol intake: former Alcohol use details: HEAVY DRINKER/ALCOHOLIC Substance use: former Substance use type: crack/cocaine Last use: 2002 Living arrangements: with family Additional living arrangements comments: ROOMMATE Spiritual care concerns: No Anes - Eval Final PreProcedure Day of Procedure 11/05/24 12:13 Patient weight: normal Heart: regular rate and rhythm Lungs: clear to auscultation Airway: Mallampati scale class II Neurological: alert and oriented Last oral intake: >/= 8 hours ASA classification: III Emergent: no Anesthetic plan: proceed Anesthesia type and monitoring: general GIVS and standard monitoring Results Review: All pre-operative results and documents have been reviewed as part of the pre- operative evaluation. Informed Consent: The patient's anesthetic plan and its attendant risks and benefits were discussed with the patient/family/POA. Questions were solicited and answers provided to the satisfaction of the patient/family/POA.
--- NOTE | 2024-11-05 13:12 | PM.IMHP ---
H&P: HPI History of Present Illness Date/Time: 11/05/24 13:12 Chief Complaint: History of colon polyps Narrative: The patient has a history of colonic polyps, the last colonoscopy was May 2023, however the colon was not well prepped and she is returning for colonoscopy today. Review of Systems Review of Systems: All systems reviewed & are unremarkable except as noted in HPI and below PMFSH Past Medical History Medical History (Updated 11/05/24 @ 13:13 by Andrés Castillo MD) Former smoker Endometriosis GERD (gastroesophageal reflux disease) (~08/07/24) Anemia Anxiety Asthma ADHD Healthy female adult Social History Social History Smoking packs per day: 1 Smoking cigarettes per day: 20.0 Years smoked: 10 Smoking pack-years: 10.00 Smoking status: Former smoker Tobacco type: cigarettes Smoking end date: 11/25/03 Alcohol intake: former Alcohol use details: HEAVY DRINKER/ALCOHOLIC Substance use: former Substance use type: crack/cocaine Last use: 2002 Living arrangements: with family Additional living arrangements comments: [facility]ATE Spiritual care concerns: No Meds Home Medications and Allergies Home Medications ?Medication ?Instructions ?Recorded ?Confirmed ?Type albuterol sulfate 90 mcg/actuation 1 puff inhalation PRN PRN 07/18/21 11/03/24 History aerosol inhaler shortness of breath or wheezing cholecalciferol (vitamin D3) 1,250 50,000 unit PO WEEKLY 07/18/21 11/05/24 History mcg (50,000 unit) capsule calcium 500 mg (as 2 tablet PO DAILY 07/30/24 11/05/24 History carbonate)-vitamin D3 3.125 mcg (125 unit) tablet cholecalciferol (vitamin D3) 50 100 mcg PO DAILY 07/30/24 11/05/24 History mcg (2,000 unit) chewable tablet cyanocobalamin (vitamin B-12) 100 100 mcg PO DAILY 07/30/24 11/05/24 History mcg tablet dicyclomine 10 mg capsule 10 mg PO QID PRN abdominal pain 07/30/24 11/03/24 History ferrous sulfate 325 mg (65 mg 325 mg PO DAILY 07/30/24 11/05/24 History iron) tablet (Feosol) fluticasone propionate 115 2 puff inhalation Q12H 07/30/24 11/05/24 History mcg-salmeterol 21 mcg/actuation HFA inhaler (Advair HFA) inulin 2 gram chewable tablet 10 g PO DAILY 07/30/24 11/05/24 History (Fiber Delights) montelukast 10 mg tablet 10 mg PO DAILY 07/30/24 11/05/24 History omeprazole 20 mg capsule,delayed 20 mg PO DAILY 07/30/24 11/05/24 History release sodium sul 1.479 gram-potas ch See Rx Instructions PO PER PKG DIR 08/13/24 11/05/24 Rx 0.188 gram-magnes sul 0.225 gram #24 tabs tablet (Sutab) Allergies Allergy/AdvReac Type Severity Reaction Status Date / Time ketorolac Allergy Intermediate Numbness Verified 11/05/24 11:44 FROM WAIST DOWN Penicillins AdvReac Intermediate Hives and Verified 11/05/24 11:44 vomiting Sulfa (Sulfonamide AdvReac Unknown hives and Verified 11/05/24 11:44 Antibiotics) vomiting fluticasone (From Flonase) AdvReac Nose Bleed Verified 11/05/24 11:44 BC pills AdvReac Intermediate uterine Uncoded 11/05/24 11:44 bleeding Vital Signs Vital Signs - 24 hr 11/05/24 11:54 Temperature 98.4 F Pulse Rate 59 L Respiratory Rate 20 Blood Pressure 111/68 Pulse Oximetry 100 Oxygen Delivery Room Air Exam Const: General: cooperative and healthy appearing Resp: Effort & Inspection: normal respiratory effort and able to speak in complete sentences Auscultation: clear to auscultation bilaterally Cardio: Rate: regular rate Rhythm: regular rhythm GI: Inspection: normal to inspection GI Palp: No No hepatosplenomegaly present Auscultation: normal bowel sounds Rectal Exam: deferred Skin: General skin exam: normal color Psych: Appearance: grossly normal Mental Status: mental status grossly normal Assessment and Plan Assessment and plan (1) History of colonic polyps: Code(s): Z86.0100 - Personal history of colon polyps, unspecified Status: Acute Assessment and Plan: The patient is deemed a good candidate for the procedure. Consent signed. Will proceed.
[2024-11-05] MEDS: SIMETHICONE ORAL SUSPENSION 20 MG/0.3 ML 30 ML BOTTLE 0.6 ML IRRIGATION (13:21)
[2024-11-05 13:30] VITALS: BP 104/68; PULSE 70; RESP 24; O2SAT 99
[2024-11-05 13:40] VITALS: BP 108/69; PULSE 65; RESP 18; O2SAT 100
[2024-11-05 13:50] VITALS: BP 101/61; PULSE 66; RESP 18; O2SAT 100
== END 2024-11-05 14:07 | disposition home or self-care (01) ==
PROVIDERS: Referring Provider Obstetrics & Gynecology; Visit Provider Internal Medicine Gastroenterology
PROC: 0DJD8ZZ Inspection of Lower Intestinal Tract, Via Natural or Artificial Opening Endoscopic (ICD-10-PCS; CPT 45378; principal; 2024-11-05 12:30)
DX: Z09 Encounter for follow-up examination after completed treatment for conditions other than malignant neoplasm (principal); N80.9 Endometriosis, unspecified; K21.9 Gastro-esophageal reflux disease without esophagitis; D64.9 Anemia, unspecified; F41.9 Anxiety disorder, unspecified; J45.909 Unspecified asthma, uncomplicated; F90.9 Attention-deficit hyperactivity disorder, unspecified type; Z79.51 Long term (current) use of inhaled steroids; Z87.891 Personal history of nicotine dependence; Z86.0100 Personal history of colon polyps, unspecified
CPT/HCPCS: 45378; J2003; J2704; J7120

== ENCOUNTER 2025-02-24 09:01 | Outpatient (CLI) | payer OTHER, SELFPAY ==
--- OUTSIDE RECORDS SUMMARY | 2025-02-24 09:26 | XMS_ITS | Clinical Summary ---
Author Organization [facility] Address [address] [place] [address] Care Team Providers Care Director Smb Sales Name Role Phone Rodger Castillo MD Primary Care Provider [phone] Allergies Active Allergy Reactions Criticality Noted Date Comments Ketorolac Other (See Comments) Low 02/16/2020 Lose feeling from waist down Other reaction(s): Other (See comments) Numbness Nasin Nasal Primghar Other (See Comments) 02/16/20 20 Nose bleed [...] COVID-19 VACCINE - EMERGENCY USE AUTHORIZATION, MRNA, ZOB163D9(PF) 30 MCG/0.3 ML IM SUSP 02/28/2021,02/02/2021 (PREVNAR 20)(6 WKS UP) PNEUM OCOCCAL CONJUGATE VACCINE 20-VALENT (PCV20), POLYSACCHARIDE [id number] CONJUGATE, ADJUVANT 0.5 ML (PF) IM 05/28/2023 [...] Comments Blood Pressure 105/68 06/11/2023 11:30 AM [employer] Pulse 69 06/11/2023 11:30 AM [employer] Temperature 36.2 C (97.1 F) 06/11/2023 11:19 AM [employer] Respiratory Rate 146 06/11/2023 11:30 AM [employer] Oxygen Saturation 100% 06/11/2023 11:30 AM [employer] Inhaled Oxygen Concentration - - Weight 53.1 kg (117 lb) 05/28/2023 10:09 AM [employer] Height 149.9 cm (4' 11) 05/28/2023 10:09 AM [employer] Body Mass Index 23.63 05/28/2023 10:09 AM [employer] Plan of Treatment Health Maintenance Due Date Last Done Comments HEPATITIS B VACCINES (1 of 3 - 19+ 3-dose series) 1998 HPV VACCINES (1 - 3-dose SCD M series) 2006 BREAST CANCER SCREENING 12/12/2023 12/12/19, 04/06/2021, 03/26/2020, Additional history exists FIT-DNA Q 3 years 2024 FIT/FOBT Q 1 year 2024 Preventative Visit- Commercial 05/27/2024 0 05/28/2023, 12/27/2022, 11/22/2022, Additional history exists INFLUENZA VACCINE (#1) 2024 03/13/2021 COVID-19 Vaccine (3 2024-2 6 season) 2025 02/28/2021, 02/02/2021 COLORECTAL SCREENING 06/11/2026 06/11/2023, 06/11/19 24 Colorectal Cancer Screening 06/11/2026 Flex Sig/CT Colonography Q 5 years 03/12/20282022 DTAP/TDAP/TD VACCINES (2 - T d or Tdap) 03/13/2031 03/13/2021 Procedures Procedure Name Priority Date/Time Associated Diagnosis Comments COLONOSCOPY REPORT 06/11/2023 11 :23 AM [employer] FLEXIBLE SIGMOIDOSCOPY REPORT 03/12/2023 7:31 AM CDT MAMMO 3D TRINIDAD SCREEN BILAT W OR WO CAD Routine 12/11/2022 9:48 AM CDT Visit for screening mammogram from Last 3 Months or Most Recently Relevant to Health Maintenance Results * COLONOSCOPY REPORT (06/11/2023 11:23 AM [employer]) Narrative Procedure Note Ivania Viramontes MD - 06/11/2023 11:23 AM CST [facility] Endoscopy Patient Name: Namita Ash [...] of Addenda: [address]; [place] [address] Ivania Viramontes MD GI PROCEDURE ORDERABLES Final Result * FLEXIBLE SIGMOIDOSCOPY REPORT (03/12/2023 7:31 AM CDT) Narrative Procedure Note Ivania Viramontes MD - 03/12/2023 7:30 AM CDT [facility] Endoscopy Patient Name: Namita Ash [...] have celiac antibody lab tests drawn at [facility] or a [facility] near your house when convenient for you. - I have requested a clinic follow up visit for you. Ivania Viramontes MD 03/12/2023 7:30:42 AM This report has been signed electronically. Number of Addenda: [address]; [place] [address] Ivania Viramontes MD GI PROCEDURE ORDERABLES Final [...] if suspicious findings are present clinically. An [employer] certified facility. DICTATION LOCATION: [facility] Narrative 12/11/2022 12:58 PM CDT MAMMOGRAMS SCREENING [...] if suspicious findings are present clinically. An [employer] certified facility. DICTATION LOCATION: [facility] Rodger Castillo MD MAMMO ORDERABLES Final Result from Last 3 Months or Most Recently Relevant to Health Maintenance Insurance [employer] OPEN ACCESS [employer] Directives For more information, please contact: [phone] * Full Code (Latest Code Status on File) Date Activated Date Inactivated Comments 06/11/2023 10:17 AM 06/11/2023 2:51 PM * Full Code Date Activated Date Inactivated Comments 03/12/2023 6:44 AM 03/12/2023 10:18 AM * Full Code Date Activated Date Inactivated Comments 01/05/2022 9:04 AM 01/06/2022 3:58 PM Care Teams Director Smb Sales Relationship Specialty Start Date End Date Rodger Castillo MD PCP - General Internal Medicine 02/12/20
[2025-03-08 00:07] LABS: Arsenic, Blood <1 ug/L (0-9); Lead, Blood <1.0 ug/dL (0.0-3.4); Mercury, Blood <1.0 ug/L (0.0-14.9)
== END 2025-02-24 09:02 | disposition home or self-care (01) ==
LOC: ANHLAB 09:03
PROVIDERS: Visit Provider Obstetrics & Gynecology
DX: Z77.018 Contact with and (suspected) exposure to other hazardous metals (principal)
CPT/HCPCS: 82175; 83655; 83825

== ENCOUNTER 2025-04-12 14:44 | Outpatient (CLI) | payer OTHER, SELFPAY ==
--- NOTE | ~2025-04-12 | MM_ITS ---
EXAMINATION: MM screening pipe BI w cary HISTORY: Screening TECHNIQUE: Craniocaudal and mediolateral oblique 3-D tomosynthesis images were obtained and synthetic 2-D images were generated. CAD analysis was submitted and interpreted. COMPARISON: None provided BREAST PARENCHYMAL COMPOSITION: Not Dense: There are scattered areas of fibroglandular density. FINDINGS: There is no evidence of suspicious mass, calcification, or architectural distortion to suggest malignancy in either breast. IMPRESSION: 1. No mammographic evidence of malignancy. 2. Recommend routine screening mammography in one year. BI-RADS Category 1: Negative Reviewed, dictated and finalized at location B. ECTION MANAGER
== END 2025-04-12 14:45 | disposition home or self-care (01) ==
LOC: ANHFOHIMG 14:45
PROVIDERS: Visit Provider Obstetrics & Gynecology
DX: Z12.31 Encounter for screening mammogram for malignant neoplasm of breast (principal)
CPT/HCPCS: 77063; 77067